=== PATIENT | female | born 1965 | race Caucasian/White ===

== ENCOUNTER → 2023-09-18 12:24 | Outpatient (REF) | payer BC, SELFPAY | LOC: HWWDC 12:24 | PROVIDERS: ATTENDING PHYSICIAN Student in an Organized Health Care Education/Training Program | DX: Z12.31 Encounter for screening mammogram for malignant neoplasm of breast (principal); R05.1 Acute cough | CPT/HCPCS: 71046; 77063; 77067 ==

== ENCOUNTER 2024-08-17 16:26 | Inpatient (IN) | payer BC, SELFPAY ==
[2024-08-17] VITALS (9 sets, daily range): BP systolic 94–126; BP diastolic 53–71; BMI 16.5
[2024-08-17 10:59] LABS: COVID-19 Antigen Negative (Negative)
[2024-08-17 11:02] LABS: ALT (SGPT) 24 U/L (0-35); AST (SGOT) 36 U/L (14-36); Alkaline Phosphatase 94 U/L (38-126); Blood Urea Nitrogen 3 mg/dl (7-17); Calcium 8.7 mg/dl (8.4-10.2); Carbon Dioxide 30 mmol/L (22-30); Chloride 93 mmol/L (98-107); Glucose 119 mg/dl (70-99); Potassium 3.8 mmol/L (3.5-5.1); Sodium 126 mmol/L (135-145); Total Bilirubin 0.6 mg/dl (0.2-1.3); Total Protein 5.3 g/dl (6.3-8.2); eGFR > 60.00
[2024-08-17 11:03] LABS: % Basophils 0.8 % (0-2); % Eosinophils 0.4 % (0-6); % Immature Granulocytes 0.9 % (0-0.5); % Monocytes 4.2 % (1.7-9.3); % Neutrophils 90.7 % (42.2-75.2); Absolute Basophils 0.1 10^3/uL (0-0.2); Absolute Eosinophils 0.1 10^3/uL (0-0.7); Absolute Immature Granulocytes 0.2 10^3/uL (0-0.05); Absolute Lymphocytes 0.5 10^3/uL (1.2-3.4); Absolute Monocytes 0.7 10^3/uL (0.1-0.6); Absolute Neutrophils 15.6 10^3/uL (1.4-6.5); Hemoglobin 12.1 g/dL (12.0-16.0); Mean Corp Hgb Conc. 35.6 g/dL (33.0-37.0); Mean Corpuscular Hgb 31.7 pg (27.0-31.0); Mean Platelet Volume 10.7 fL (7.4-10.4); Nucleated Red Blood Cells % 0 %; Platelet Count 303 10^3/uL (130-400); Red Blood Cell Count 3.82 10^6/uL (4.20-5.40); Red Cell Dist. Width 12.5 % (11.5-14.5); White Blood Cell Count 17.2 10^3/uL (4.8-10.8)
--- NOTE | 2024-08-17 11:42 | ED.GENMED ---
History of Present Illness
General
Chief Complaint: Breathing Problem
Source: patient
Exam Limitations: none
Time Seen by Provider: 08/17/24 10:12
Nursing documentation reviewed up to this point in time: agreed with
History of Present Illness
History of Present Illness:
58-year-old female with no significant past medical history states she was in [place] for 3 weeks, on the plane yesterday to come back home she developed a cough. She has since developed a headache, she states her fever was 104 last night, she has
had green mucus sputum and nasal discharge, severe fatigue. Denies nausea or vomiting
Past History
Past History
ED Past Medical History: None
ED Past Surgical History: None
Social History
Tobacco: Former smoker
Alcohol: None
Personal: Single
Employment: Employed
Review of Systems
Review of Systems
Allergies reviewed?: Yes
All Other Systems: ROS reviewed and negative except as documented in HPI and ROS
Constitutional: Reports fever and fatigue
EENT: Denies sore throat
Respiratory: Reports cough and trouble breathing
Cardiac: Denies chest pain
ABD/GI: Denies abdominal pain, nausea, vomiting or diarrhea
: Denies dysuria, incontinence or urgency
Musculoskeletal: Reports no symptoms
Skin: Reports no symptoms
Neurological: Denies dizzy or headache
Phy Exam
Physical Exam
Physical Exam:
GENERAL: No acute distress. A&Ox3.
CONSTITUTIONAL: Afebrile.
EYES: clear, conjunctivae normal
ENMT: moist mucus membranes, Pharynx nl
RESPIRATORY: Regular respirations, mildly labored, lungs sounds diminished, Coarse junky cough. Initial pulse ox on room air was 89 placed on 3L NC, pulse ox up to 98%
CARDIOVASCULAR: Regular rate and rhythm, no murmurs, no rubs.
GI: Soft, nontender, normal BS
MUSCULOSKELETAL: Moves with ease. Well perfused.
SKIN: Warm, dry, pale
PSYCH: Normal mood and affect. Well kept, interactive and appropriate
NEUROLOGIC: Awake, alert and oriented. No focal neurological deficits
Scores
Heart Failure Risk
Heart Failure Risk Score: Not Applicable
Course
Orders/Labs/Results
Orders:
Orders
08/17/24 10:34
COVID-19 Antigen Urgent
Source: Nasal Swab
Complete Blood Count/With Diff Urgent
Comprehensive Metabolic Panel Urgent
D-Dimer Urgent
NT-proBNP Urgent
Comment: ADD ON
Serum Osmolality Urgent
TSH Urgent
Influenza A+B Rapid Molecular Urgent
EJ Source: Nasal Swab
Specimen Description:
08/17/24 11:42
Electrocardiogram (*1) Urgent
Reason for Study: Shortness of Breath
EKG- Treatment ONCE
0.9% Sodium Chloride 1000 ml [Nss] 1,000 ml IV BOLUS
08/17/24 12:04
CT Chest PE Study Urgent
Comment:
Reason For Exam: , hypoxia, elevated dimer
08/17/24 12:35
0.9% Sodium Chloride 250 ml [Nss] 250 ml IV BOLUS
08/17/24 12:42
0.9% Sodium Chloride 500 ml [Nss] 500 ml IV BOLUS
08/17/24 13:33
Add On- LAB Urgent
Tests Added?: TSH
08/17/24 13:34
Add On- LAB Urgent
Tests Added?: Serum osmolality
08/17/24 15:25
Add On- LAB Urgent
Tests Added?: Pro BNP
08/17/24 15:27
Furosemide [Lasix] 40 mg IV NOW STA
08/17/24 16:12
Troponin I Urgent
08/17/24 16:14
Admit/Transfer Patient As Directed
Co-Sign Provider:
Level of Care: Inpatient admission
Assign to:: Telemetry
Physician / Group: becky
Diagnosis: pnuemonia/acute sinusitis
Reason for Telemetry: Arrhythmia
Date to Stop Telemetry: 08/20/24
Time to Stop Telemetry: 11:00
Reason for Hospitalization: pnuemonia/acute sinusitis
Expected length of stay greater than two midnights?: Yes
ELOS- Estimated Length of Stay in days: 2
I certify the patient meets the requirements for IP care: Yes
Code Status As Directed
Resuscitation Status: Full Code
PRN Pain Medication Management As Directed
May give lesser potent ordered pain med per pt: Yes
preference::
Protocol:: Medication orders for pain may be administered in a
manner that supports deferring to patient preference
when the pt is:
- Requesting an ordered lesser potent pain medication.
Least to most potent pain medications are defined
as: acetaminophen < NSAID < tramadol < opioids
(morphine, oxycodone, hydromorphone).
- Requesting a lesser dose of the same medication IF
ORDERED.
- Requesting a less intrusive route of administration
if both routes are prescribed by the provider (PO <
IV).
08/17/24 16:48
Osmolality, Random Urine Urgent
Date Specimen was Collected: 08/17/24
Time Specimen was Collected: 15:11
Urinalysis Reflex To Culture Urgent
Date Specimen was Collected: 08/17/24
Time Specimen was Collected: 15:11
Urine Microscopic Reflex Cult Urgent
Urine Sodium Urgent
Date Specimen was Collected: 08/18/24
Time Specimen was Collected: 07:02
Urine Culture Urgent
EJ Source: U
Specimen Description:
Date Specimen was Collected: 08/17/24
Time Specimen was Collected: 15:11
08/17/24 16:49
Blood Culture Q30M
EJ Source: Blood/Venous
Specimen Description:
Blood Culture Q30M
EJ Source: Blood/Venous
Specimen Description:
08/17/24 18:00
Acetaminophen [Tylenol] 650 mg PO Q4HPRN PRN
CefTRIAXone [Rocephin] 1,000 mg IV Q24H
Doxycycline Hyclate [Vibramycin] 100 mg 0.9% Sodium Chloride 250 ml [Nss] 250 ml IV Q12H
08/17/24 18:00
Activity As Directed
Activity Level: As Tolerated
Vital Signs As Directed
Frequency: Per unit guidelines
DX Deep Vein Thrombosis Video Routine
08/17/24 20:00
Heparin 5,000 units SC Q12
08/18/24 06:49
Complete Blood Count/With Diff IN AM
Comprehensive Metabolic Panel IN AM
08/20/24 11:00
DC Protocol for Telemetry ONCE
Abnormal Lab Results
08/17/24
10:34
WBC 17.2 H 10^3/uL
(4.8-10.8)
RBC 3.82 L 10^6/uL
(4.20-5.40)
Hct 34.0 L %
(37.0-47.0)
MCH 31.7 H pg
(27.0-31.0)
MPV 10.7 H fL
(7.4-10.4)
Abs Immat Gran (auto) 0.2 H 10^3/uL
(0-0.05)
Absolute Neuts (auto) 15.6 H 10^3/uL
(1.4-6.5)
Absolute Lymphs (auto) 0.5 L 10^3/uL
(1.2-3.4)
Absolute Monos (auto) 0.7 H 10^3/uL
(0.1-0.6)
Immature Gran % 0.9 H %
(0-0.5)
Neutrophils % 90.7 H %
(42.2-75.2)
Lymphocytes % 3.0 L %
(20.5-51.1)
D-Dimer 2.76 H ug/mlFEU
(0.00-0.50)
Sodium 126 L mmol/L
(135-145)
Chloride 93 L mmol/L
(98-107)
BUN 3 L mg/dl
(7-17)
Creatinine 0.4 L mg/dL
(0.6-1.0)
Glucose 119 H mg/dl
(70-99)
Serum Osmolality 255 L mOsm/kg
(275-300)
Total Protein 5.3 L g/dl
(6.3-8.2)
Albumin 3.0 L g/dl
(3.5-5.0)
08/17/24 10:34
08/17/24 10:34
Vital Signs
Initial and Last Documented VS:
Initial Vital Signs
Temp Pulse Resp BP Pulse Ox
99.1 F 90 18 126/63 91
08/17/24 09:30 08/17/24 09:30 08/17/24 09:30 08/17/24 09:30 08/17/24 09:30
Last Documented Vital Signs
Temp Pulse Resp BP Pulse Ox
98.1 F 82 14 99/61 92
08/18/24 07:10 08/18/24 12:05 08/18/24 12:05 08/18/24 07:10 08/18/24 12:05
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
Poultry Farm Laborer consulted with physician?: Yes
Name of Physician Consulted: Cony
MDM/Problems Addressed
MDM/Problems Addressed:
58-year-old female with no significant past medical history states she was in [place] for 3 weeks, on the plane yesterday to come back home she developed a cough. She has since developed a headache, she states her fever was 104 last night, she has
had green mucus sputum and nasal discharge, severe fatigue. Denies nausea or vomiting
Temp 99.1 hypoxic 89% room air, placed on 4 L nasal cannula and is up to 98%
11:30 AM:
Monitor showed a run of tachycardia 138 for about a minute then back to NSR 74.
EKG: NSR
WBC 17.2 with a left shift
D-dimer elevated at 2.76
CMP: Sodium 126 chloride 93
COVID-negative
3:[address] report read: IMPRESSION:
1. Negative for pulmonary embolism.
2. Diffuse bilateral interstitial thickening with thickening of the interalveolar septae, mild bronchial wall thickening, Lucia B-lines, additional micronodular opacities with some ground glass attenuation centrilobular nodules. Trace right
pleural effusion. Together these findings are most suggestive of diffuse interstitial edema with some early changes of the alveolar edema. An atypical infectious process would be a differential consideration.
3. Mediastinal and hilar adenopathy with decreased attenuation, likely related to edematous change. There is also abnormally low attenuation within the visible adipose tissue of the mesentery and retroperitoneum suggesting third spacing.
Initially treated for SIRS/sepsis considering pneumonia with leukocytosis, hypoxemia, low-grade fever
But now patient's CAT scan comes back with the above findings, I will give Lasix 40 mg IV and BNP,Troponin are pending
4:00 p.m.
Hospitalist notified of admission
BNP, Troponin pending
*Pulse Oximetry
Patient hypoxic: yes (Pulse ox 90% on room air)
Comment: 89% on arrival
*EKG
EKG Intrepretation Date: 08/17/24
Interpretation: normal
Heart Rate: 73
Rate: normal
Rhythm: sinus
[place]: left axis deviation
Interval: normal interval
QRS Pattern: normal QRS
Ischemia: no ischemia
*Critical Care Note
Total Time (30-74mins, 75-104mins- exclusive of procedures): Not Applicable
ED Attending Note
-
Portions of this chart may have been created with voice recognition software.� Occasional wrong word or��sound alike� substitutions may have occurred due to the inherent limitations of voice recognition software.
Discharge Plan
Departure
Patient Disposition: Admit
Date of Disposition: 08/17/24
Time of Disposition: 15:24
Admit to: Telemetry
Presentation/result/management discussed w/ accepting MD/DO: Hospitalist
Condition: Serious
Discharge Problem:
Acute hypoxemic respiratory failure, CHF (congestive heart failure)
Interventions
Interventions:
*Risk Screen - Suicide Last Done: 08/17/24 09:30
*General Assessment Last Done: 08/17/24 09:30
*Neglect/Abuse Screening Last Done: 08/17/24 09:30
*ED- Fall Risk Assessment Last Done: 08/17/24 10:37
*ED COVID-19 Vaccine History Last Done: 08/17/24 10:37
*Nursing Disposition Last Done: 08/17/24 18:58
ED- Cardiac Assessment Last Done: 08/17/24 10:32
ED- Pulmonary Assessment Last Done: 08/17/24 10:32
Discharge Date and Time
Discharge Date/Time: 08/17/24 18:59
[2024-08-17 11:46] LABS: D-Dimer 2.76 ug/mlFEU (0.00-0.50)
[2024-08-17] MEDS: NSS 1000 IV (12:15)
[2024-08-17] MEDS: NSS 500 IV (12:49)
[2024-08-17 14:23] LABS: Osmolality Serum 255 mOsm/kg (275-300)
[2024-08-17 14:37] LABS: TSH 1.36 uIU/ml (0.47-4.68)
[2024-08-17] MEDS: LASIX 40 MG IV (16:11)
--- NOTE | 2024-08-17 16:17 | HPS.HSE ---
Family Physician
-
Family Physician: Anibal Tomas
Chief Complaint
-
cough, shortness of breath
History of Present Illness
58-year-old female past medical history of chronic sinusitis, low blood pressure presenting with shortness of breath. She was in [place] for 3 weeks on the plane yesterday to come back when she developed a cough with productive sputum and shortness
of breath. She has since developed a headache with fever of 104 last night. She has some sore throat. She has green mucus sputum and nasal discharge and severe fatigue. Denies nausea or vomiting.
Denies any history of heart conditions.
She states her blood pressure is normally in the low 100 to baseline.
She drinks alcohol occasionally. Denies smoking.
Medical History
Past Medical History
Past Medical History: Reports Other (chronic sinusitis, low blood pressure)
Past Surgical History: Reports None
Social History
Tobacco: Non-smoker
Alcohol: None
Drug: None
Family History
Family History: Not pertinent
Allergies / Home Medications
Allergies reflects when Allergies were last updated in [employer].
Home Medications with original date entered in [employer]
Allergy/Medication List:
Allergies
Allergy/AdvReac Type Severity Reaction Status Date / Time
Penicillins Allergy Hives Verified 08/17/24 09:33
Home Medications
albuterol sulfate 90 mcg/actuation aerosol inhaler 2 puff inhalation R Q6HPRN PRN sob 08/17/24
guaifenesin 100 mg/5 mL oral liquid 200 mg PO DAILYPRN PRN cough 08/17/24
methylcellulose (with sugar) oral powder packet 1 ea PO DAILY 08/17/24
therapeutic multivitamin 1 tab PO DAILY 08/17/24
Review of Systems
-
History Source: Patient
A 12 point ROS was completed and negative except as noted: Yes
Constitutional: Reports No Symptoms
EENT: Reports No Symptoms
Respiratory: Reports See HPI
Cardiac: Reports See HPI
Abdomen/GI: Reports No Symptoms
: Reports No Symptoms
Musculoskeletal: Reports No Symptoms
Skin: Reports No Symptoms
Neurological: Reports No Symptoms
Endocrine: Reports No Symptoms
Hematologic/Lymphatic: Reports No Symptoms
Psych: Reports No Symptoms
Physical Exam
Vital Signs
Vital Signs
Temp Pulse Resp BP Pulse Ox
99.1 F 78 21 126/63 99
08/17/24 09:30 08/17/24 11:00 08/17/24 11:00 08/17/24 09:30 08/17/24 11:00
Physical Exam
General: Well Developed, Well Nourished and No Apparent Distress
HEENT: NormoCephalic, Moist mucous membranes and Atraumatic
Respiratory: Clear
Cardiac: S1/S2 and Regular Rhythm; No Murmur or Rub
GI: Soft, Non Tender, Non Distended and Normal Bowel Sounds; No Organomegaly
Rectal: Deferred by Provider
Musculoskeletal: No Clubbing, No Cyanosis and No Edema
Skin: No Rash
Neuro: Nonfocal/grossly intact
Laboratory Results
-
08/17/24 10:34
08/17/24 10:34
Laboratory Results
Total Bilirubin 0.6 mg/dl (0.2-1.3) 08/17/24 10:34
AST 36 U/L (14-36) 08/17/24 10:34
ALT 24 U/L (0-35) 08/17/24 10:34
Alkaline Phosphatase 94 U/L (38-126) 08/17/24 10:34
Data Reviewed
-
Lab Data: Labs Reviewed by me
Old Records: Reviewed
Impression/Plan
-
IMPRESSION:
PLAN:
# Sepsis (leukocytosis, tachypnea) secondary to pneumonia/acute sinusitis although imaging suggesting acute CHF exacerbation
-COVID and flu negative
-D-dimer 2.76
- CT chest shows diffuse bilateral interstitial thickening with thickening of the interlobular septae, mild bronchial wall thickening and curly B-lines, trace right pleural effusion suggestive of diffuse interstitial edema with changes of alveolar
edema versus atypical infectious process, mediastinal and hilar adenopathy decreasing attenuation likely related to edematous change
- Clinical picture not suggestive of congestive heart failure, not volume overloaded on exam
- Cardiac BNP pending
-Patient given IV fluids and then Lasix
-Check blood cultures
- Ceftriaxone/doxycycline
# Hyponatremia could be decreased solute intake vs SIADH
- Check urine sodium, osmolality
- Hold off on further Lasix for now
Chronic sinusitis
Chronic low blood pressure
Full code
DVT prophylaxis heparin
Cardiac diet
[2024-08-17 16:48] LABS: NT-proBNP 1600 pg/ml
[2024-08-17 16:50] LABS: Troponin I < 0.012 ng/ml
[2024-08-17 17:15] LABS: Urine Albumin Negative (Neg - Trace); Urine Bilirubin Negative (Negative); Urine Character Clear (Clear); Urine Color Yellow; Urine Glucose Negative (Negative); Urine Ketone Negative (Negative); Urine Leukocyte 2+ (Negative); Urine Nitrite Negative (Negative); Urine Occult Blood 1+ (Negative); Urine Specific Gravity 1.005 (<1.030); Urine Urobilinogen Negative (Neg - 1+)
[2024-08-17] MEDS: ROCEPHIN 1000 MG IV (17:41)
[2024-08-17 17:42] LABS: Urine Squamous Cell 0-2 /LPF (Few)
[2024-08-17] MEDS: VIBRAMYCIN 260 MG IV (17:42)
[2024-08-17 17:43] LABS: Urine Red Blood Cell 0-2 /HPF (0-2); Urine White Cell 16-20 /HPF (0-5)
[2024-08-17 17:44] LABS: Urine Bacteria Many (Negative)
[2024-08-17] MEDS: STERILE WATER FOR INJECTION IV (18:13)
--- NOTE | 2024-08-17 18:42 | PTCARENOTE ---
pt presented from ED via stretcher. pt is AAO*3, Vss, 2L o2. pt is oriented to the room. call paez within the reach. pain with cough. plan of care ongoing.
[2024-08-17 19:07] LABS: Osmolality Urine 236 mOsm/kg (300-900)
[2024-08-17] MEDS: HEPARIN SC (21:16)
[2024-08-18] MEDS: ROBITUSSIN 200 MG PO ×2 (01:47→04:39)
[2024-08-18] MEDS: VIBRAMYCIN 260 MG IV ×2 (05:08→17:09)
[2024-08-18] MEDS: TESSALON PERLES 200 MG PO ×2 (05:09→23:13)
[2024-08-18 07:10] VITALS: BP 99/61
[2024-08-18 07:21] LABS: % Basophils 0.6 % (0-2); % Eosinophils 0.2 % (0-6); % Immature Granulocytes 0.9 % (0-0.5); % Lymphocytes 5.1 % (20.5-51.1); % Monocytes 5.3 % (1.7-9.3); % Neutrophils 87.9 % (42.2-75.2); Absolute Basophils 0.1 10^3/uL (0-0.2); Absolute Immature Granulocytes 0.1 10^3/uL (0-0.05); Absolute Lymphocytes 0.6 10^3/uL (1.2-3.4); Absolute Monocytes 0.7 10^3/uL (0.1-0.6); Absolute Neutrophils 11.1 10^3/uL (1.4-6.5); Hematocrit 32.1 % (37.0-47.0); Hemoglobin 11.4 g/dL (12.0-16.0); Mean Corp Hgb Conc. 35.5 g/dL (33.0-37.0); Mean Corpuscular Hgb 32.1 pg (27.0-31.0); Mean Corpuscular Volume 90.4 fL (81.0-99.0); Mean Platelet Volume 10.8 fL (7.4-10.4); Nucleated Red Blood Cells % 0 %; Platelet Count 315 10^3/uL (130-400); Red Blood Cell Count 3.55 10^6/uL (4.20-5.40); Red Cell Dist. Width 12.6 % (11.5-14.5); White Blood Cell Count 12.6 10^3/uL (4.8-10.8)
[2024-08-18 07:47] LABS: ALT (SGPT) 24 U/L (0-35); AST (SGOT) 31 U/L (14-36); Albumin 2.7 g/dl (3.5-5.0); Alkaline Phosphatase 102 U/L (38-126); Blood Urea Nitrogen 4 mg/dl (7-17); Calcium 8.3 mg/dl (8.4-10.2); Carbon Dioxide 28 mmol/L (22-30); Chloride 96 mmol/L (98-107); Estimated Creatinine Clearance 64 ml/min; Glucose 119 mg/dl (70-99); Potassium 3.5 mmol/L (3.5-5.1); Sodium 128 mmol/L (135-145); Total Bilirubin 0.5 mg/dl (0.2-1.3); Total Protein 4.9 g/dl (6.3-8.2); eGFR > 60.00
[2024-08-18] MEDS: LASIX 40 MG IV (09:14)
[2024-08-18] MEDS: HEPARIN 5000 UNITS SC ×2 (09:21→21:00)
[2024-08-18 09:25] VITALS: BMI 16.5
[2024-08-18 11:07] LABS: Urine Sodium 73 mmol/L (30-90)
--- NOTE | 2024-08-18 11:19 | W.PN.HOSP.TC ---
Today's Communication/Plan
-
States that she would like to leave today. Recommended that she stays to figure out what exactly is causing the shortness of breath and hypoxemia. Obtaining a 2D echocardiogram. Giving additional dose of IV Lasix though clinically does not appear
volume overloaded however CT chest suggestive of heart failure versus pneumonia. Continue IV antibiotics. Informed her that if she did want to leave it would be AGAINST MEDICAL ADVICE. States that she has meetings to get to tomorrow. Told her to
many unknowns at this time and remains hyponatremic therefore unfortunately unable to discharge her safely along with the hyponatremia.
She is competent enough to understand this. She understands why she cannot be discharged. She understands risk of worsening hypoxemia requiring intubation cardiac arrest. Stated that she would call her insurance company.
Assessment / Plan
Assessment / Plan
NAD
Scleral Anicteric
MMM
No JVD
Diminished breath sounds throughout rhonchorous when coughing
RRR, S1/S2
Soft, NT, ND, BS+
Warm, Dry
AAOx3
Calm
Acute hypoxemic respiratory failure likely secondary to pneumonia however potential for heart failure(unknown EF)/pulmonary hypertension, 83% on room air per nurse on 08/19/2019
Obtain 2D echocardiogram
IV Lasix
Daily weight
Repeat BMP in the AM
Continue Rocephin doxycycline
Wean oxygen as tolerated
Incentive spirometer
Acapella
Albuterol prn
Guaifenesin and benzonatate
Hyponatremia - Euvolemic
-Already improving
-Fluid restrict
-Repeat BMP tomorrow
Chronic sinusitis
-Does not follow with outpatient ENT
Anticipated Discharge: > 48 hours
Subjective/Interval History
-
Date of Service: August 18, 2024
Seen and examined. No new complaints. No acute overnight events.
Sitting in bedside chair not requiring oxygen however does have evidence of shortness of breath some conversational dyspnea
Nursing check pulse ox was 83% therefore started on nasal cannula again.
Was not able to order a bagel
States that she just returned from [facility] asking if she would be discharged today if not discharged today what about tomorrow. Informed her unlikely to happen. She was able to go would be AGAINST MEDICAL ADVICE. She does have capacity. Stated
that she was going to call her insurance company to confirm.
Objective Data
-
Labs:
Laboratory Results
08/18/24
06:49
WBC 12.6 H
Hgb 11.4 L
Hct 32.1 L
Plt Count 315
Sodium 128 L
Potassium 3.5
Chloride 96 L
Carbon Dioxide 28
BUN 4 L
Creatinine 0.4 L
Glucose 119 H
Calcium 8.3 L
Total Bilirubin 0.5
AST 31
ALT 24
Alkaline Phosphatase 102
Vital Signs:
Vital Signs
Temp Pulse Resp BP Pulse Ox
98.1 F 75 16 99/61 94
08/18/24 07:10 08/18/24 07:10 08/18/24 07:10 08/18/24 07:10 08/18/24 07:10
I&O
08/17/24 08/18/24 08/19/24
06:59 06:59 06:59
Intake Total 970 / 970
Balance 970 / 970
[2024-08-18 11:24] VITALS: BMI 16.5
[2024-08-18] MEDS: KCL 40 MEQ PO (11:57)
[2024-08-18] MEDS: ProAIR HFA INHALER 1 PUFF INH (12:00)
[2024-08-18] MEDS: NON-FORMULARY ITEM 1 UNIT PO (12:19)
--- NOTE | 2024-08-18 12:49 | PTCARENOTE ---
Patient with red itchy raised bumps on hands. Hospitalist notified. PO Benadryl x1 ordered. Patient with own supply of dye free Benadryl administered.
[2024-08-18 13:30] VITALS: BP 95/54
--- NOTE | 2024-08-18 13:49 | PTCARENOTE ---
Found patient sitting in chair with no o2. Checked pulse ox on RA and was 84%. Placed back on 2L. Sat 92% on 2L.
[2024-08-18 15:10] VITALS: BP 103/60
--- NOTE | 2024-08-18 15:11 | CM ---
Met with patient to obtain information for assessment. Patient stated that she lives by herself in a single 2 story home with 5 steps to enter. She described herself as independent with all ADLs, personal care, dressing and bathing. 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 She drives and can get to appointments and does all of her own shopping. 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 Patient has no DME. She has never had VN or been to a SNF.
Patient has a prescription plan and goes to [facility] in [place] for all of her medications.
Her PCP is, Anibal Tomas.
Patient does not have o2 and will most likely need it at discharge.
Plan: Case management will continue to follow and assist with discharge planning. Home, most likely o2 needs.
[2024-08-18] MEDS: STERILE WATER FOR INJECTION 10 ML IV (17:09)
[2024-08-18] MEDS: ROCEPHIN 1000 MG IV (17:09)
[2024-08-18] MEDS: DICLOFENAC 1% TOPICAL GEL 100 GRAM TOPICAL (17:10)
[2024-08-18 19:39] VITALS: BP 89/54
[2024-08-18] MEDS: DICLOFENAC 1% TOPICAL GEL 1 GRAM TOPICAL (21:00)
[2024-08-18] MEDS: HYDROCORTISONE 2.5% OINTMENT 1 APPLIC TOPICAL (21:01)
[2024-08-18 23:14] VITALS: BP 94/56
[2024-08-19 03:37] VITALS: BP 110/59
--- NOTE | 2024-08-19 05:03 | DOWNTIME ---
Addendum entered by Yoselyn Manuel RN 08/19/24 14:21:
Correction: Downtime was 08/19/2024 from 0100 to 08/19/2024 at 0415
Original Note:
There was a [employer] Downtime on 08/18/2024 from 0100 to 08/19/2024 at 0415. Downtime documentation of patient's care, including medication administrations, has been reconciled in the electronic record per guidelines. Refer to the
patient's paper chart under the miscellaneous tab to see printed paper medication records and downtime forms.
[2024-08-19] MEDS: VIBRAMYCIN 260 MG IV (05:18)
[2024-08-19] MEDS: ProAIR HFA INHALER 1 PUFF INH (06:28)
[2024-08-19 07:27] LABS: Hematocrit 35.3 % (37.0-47.0); Hemoglobin 12.2 g/dL (12.0-16.0); Mean Corp Hgb Conc. 34.6 g/dL (33.0-37.0); Mean Corpuscular Hgb 31.2 pg (27.0-31.0); Mean Corpuscular Volume 90.3 fL (81.0-99.0); Mean Platelet Volume 10.9 fL (7.4-10.4); Platelet Count 373 10^3/uL (130-400); Red Blood Cell Count 3.91 10^6/uL (4.20-5.40); Red Cell Dist. Width 12.7 % (11.5-14.5); White Blood Cell Count 11.8 10^3/uL (4.8-10.8)
[2024-08-19 07:33] VITALS: BP 109/64
[2024-08-19 07:54] LABS: Blood Urea Nitrogen 8 mg/dl (7-17); Calcium 8.6 mg/dl (8.4-10.2); Carbon Dioxide 26 mmol/L (22-30); Chloride 97 mmol/L (98-107); Estimated Creatinine Clearance 64 ml/min; Glucose 103 mg/dl (70-99); Potassium 4.2 mmol/L (3.5-5.1); Sodium 128 mmol/L (135-145); eGFR > 60.00
[2024-08-19] MEDS: HEPARIN 5000 UNITS SC ×2 (08:33→19:48)
[2024-08-19] MEDS: DICLOFENAC 1% TOPICAL GEL 100 GRAM TOPICAL ×2 (08:35→14:45)
[2024-08-19] MEDS: HYDROCORTISONE 2.5% OINTMENT TOPICAL ×2 (08:38→19:49)
--- NOTE | 2024-08-19 10:47 | PTCARENOTE ---
Received patient this am AAOx3. Pt anxious an tearful. 'Pt stated that she wants to go home'. Pt then asked what time Physician would be seeing her. Dr. Rupinder Garg saw patient. Pt has ADAMS, O2 sat 96% on 2 L O2 via nasal cannula. Pt walked in
hallway with Dr. Garg. O2 sat 89% on RA. Pt has ADAMS. Dr. Garg explained to the patient that oxygen level needs to be 88% or below for qualification to receive O2 at Home. Dr. Garg ordered a home O2 assessment. Dr. Garg explained POC and why
patient needs to be in the hospital. Pt was anxious an tearful. Plan is to get home O2 assessment. Made patient comfortable. Cont to assess patient status.
[2024-08-19 11:41] VITALS: BP 106/62
--- NOTE | 2024-08-19 13:42 | W.PN.HOSP.TC ---
Addendum entered and electronically signed by Kolby Garg MD 08/22/24 15:13:
Mild protein malnutrition.
Sepsis was ruled out
Original Note:
Today's Communication/Plan
-
Assessment / Plan
Assessment / Plan
NAD
Scleral Anicteric
MMM
No JVD
Diminshed with mild wheezing
RRR, S1/S2
Soft, NT, ND, BS+
Warm, Dry
AAOx3
Calm
Acute hypoxemic respiratory failure likely secondary to pneumonia however potential for heart failure(unknown EF)/pulmonary hypertension, 83% on room air per nurse on 08/19/2019
-?bronchitis vs wheezing but no ofral dx of copd/asthma
--will need outpt pulm follow up for pft's
2D echocardiogram no wma, 65-70%
IV Lasix
Daily weight
Repeat BMP in the AM
Continue Rocephin doxycycline
Wean oxygen as tolerated
Incentive spirometer
Acapella
Albuterol prn
Guaifenesin and benzonatate
Home o2 assessment completed and will need home o2
Hyponatremia - Euvolemic
-Already improving
-Fluid restrict
-Repeat BMP tomorrow
Chronic sinusitis
-Does not follow with outpatient ENT
Anticipated Discharge: Today
Subjective/Interval History
-
Date of Service: August 19, 2024
Seen and examined. No new complaints. No acute overnight events.
Remains on supplemental oxygen. States shortness of breath improving
I personally ambulated her in the foss lowest O2 sat 89% with a heart rate of 100. Did state that she was short of breath visibly. She was short of breath. However states that she still wants to go home
I informed her that she wanted to go home it would be AGAINST MEDICAL ADVICE as I do not believe she is medically cleared for discharge. She states she will even go home with oxygen if she needs to. I informed her I am highly recommending that she
remains inpatient and she received complete treatment for her pneumoniA and allow time for her body to heal and wean off oxygen as tolerated. 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 I bluntly told her
that if she was that she would not be working anymore. She ended up telling me that she would not want to live if she was not working.
And a stroke or cardiac arrest with respiratory distress require CPR and life support or she may if she does not continue on the treatment. She states she will continue treatment at home with oral antibiotics and home O2. She would like to be
discharged. I again told her this would be AMA. She was does not meet therefore I informed her once again today as I did yesterday. She states that IV that he would need to be discharged today cannot stay in the hospital any lonGER. She does not
want to fill AMA paperwork. I informed her this is not a good idea and she should stay in the hospital. I do not believe she is discharge ready at this time but given her persistence and not wanting to sign AMA paperwork I will have to discharge
her. Gave her strict instructions that she she feels worsening in her shortness of breath noted swelling worsening cough fevers chills anything that she should return immediately to the hospital
Objective Data
-
Labs:
Laboratory Results
08/19/24
06:44
WBC 11.8 H
Hgb 12.2
Hct 35.3 L
Plt Count 373
Sodium 128 L
Potassium 4.2
Chloride 97 L
Carbon Dioxide 26
BUN 8
Creatinine 0.4 L
Glucose 103 H
Calcium 8.6
Vital Signs:
Vital Signs
Temp Pulse Resp BP Pulse Ox
97.7 F 75 14 106/62 95
08/19/24 11:41 08/19/24 11:41 08/19/24 11:41 08/19/24 11:41 08/19/24 11:41
I&O
08/18/24 08/19/24 08/20/24
06:59 06:59 06:59
Intake Total 970 / 970 250 / 250 720 / 720
Output Total 1300 / 1300
Balance 970 / 970 -1050 / -1050 720 / 720
[2024-08-19] MEDS: LASIX 40 MG IV (14:46)
[2024-08-19 15:07] VITALS: BP 115/52
--- NOTE | 2024-08-19 16:17 | PTCARENOTE ---
Pt requires Home O2. Pt stated 'that she spoke to her nephew and he advised her to stay in the hospital until clears her for discharge'. Pt said she will stay. Dr. Rupinder Garg made aware. Pt medicated with Lasix 40 mg IV at 1450. Urine specimens
sent. Pulmonary Consult ordered by medicine. Made patient comfortable. Cont to assess patient status.
--- NOTE | 2024-08-19 16:23 | CON.PUL ---
Consultation
Consultation Request
Date/Time Consultation Requested: 08/19/2024
Date/Time Consultation Performed: 08/19/2024
Requesting Provider: Kolby Garg
Performing Provider: Eladia Castelan
Reason for Consultation: Cough, dyspnea
Medical History
-
Chief Complaint: Cough, shortness of breath
History of Present Illness:
Patient is a very pleasant 58-year-old female with no significant past medical history except for recurrent sinusitis and occasional low blood pressure who presented to the hospital with worsening shortness of breath, cough and fever. Patient
recently traveled to [place] in [facility] and on the last day of her travel she started developing some runny nose followed by sore throat. Her symptoms worsened and she developed some cough with greenish expectoration. She also reported fever, sense
of chest tightness, and wheezing at home. In view of her worsening symptoms she presented to the hospital and was noted to have bilateral infiltrates and was admitted to the hospital for additional management. Pulmonary consultation was requested
for further input.
Patient does not recall any sick contacts.
Medical History
Past Medical History
Past Medical History: Reports Other (chronic sinusitis, low blood pressure)
Past Surgical History: Reports None
Social History
Tobacco: Non-smoker
Alcohol: None
Drug: None. No pets at home, no occupational exposure reported.
Family History
Family History: Not pertinent
Allergies / Home Medications
-: Seasonal allergies with hives, itchy eyes and runny nose when pollen season.
Allergies / Home Medications
Allergies
Allergy/AdvReac Type Severity Reaction Status Date / Time
Penicillins Allergy Hives Verified 08/17/24 09:33
Home Medications
�Medication �Instructions �Recorded �Confirmed �Last Taken �Type
albuterol sulfate 90 mcg/actuation 2 puff inhalation R Q6HPRN PRN sob 08/17/24 08/17/24 Unknown History
aerosol inhaler
guaifenesin 100 mg/5 mL oral liquid 200 mg PO DAILYPRN PRN cough 08/17/24 08/17/24 08/16/24 History
methylcellulose (with sugar) oral 1 ea PO DAILY Gastrointestinal 08/17/24 08/17/24 Unknown History
powder packet Issue
therapeutic multivitamin 1 tab PO DAILY Supplement 08/17/24 08/17/24 Unknown History
Review of Systems
-
Hematologic/Lymphatic: Other (All 14 systems reviewed and negative except as stated above in the history of present illness.)
Vitals / Labs / Diagnostic Testing
Vital Signs
Temp Pulse Resp BP Pulse Ox
97.4 F 79 16 115/52 98
08/19/24 15:07 08/19/24 15:07 08/19/24 15:07 08/19/24 15:07 08/19/24 15:07
Lab Data
08/19/24 06:44
08/19/24 06:44
Microbiology
08/17/24 16:48 Urine Urine Culture - Final
Escherichia coli
08/17/24 16:49 Blood/Venous Blood Culture - Preliminary
No Growth in 24 hours- Final report to follow
08/17/24 16:49 Blood/Venous Blood Culture - Preliminary
No Growth in 24 hours- Final report to follow
08/17/24 10:34 Nasal Swab Influenza Types A & B (LUCAS) - Final
Negative for Influenza A & B, NAAT
Negative results must be combined with clinical observations
and patient history.
Nucleic Acid Amplification test (NAAT)performed on the
[employer] platform.
Diagnostic Testing:
Physical Exam
-
HEENT: Normocephalic
Cardiovascular: S1/S2
Respiratory: Wheeze (Bilateral end expiratory faint wheezing.)
GI: Soft
Neurology: Awake and Alert
Skin: Warm
General: Comfortable
Assessment
-
#1. Acute hypoxic respiratory failure.
- Suspect it is related to underlying bilateral pulmonary infiltrates, concerning for atypical pneumonia vs pulmonary edema
- O2 support as needed, wean as tolerated
#2. Bilateral pulmonary infiltrates, multifocal pneumonia with sepsis on admission
- Considering rapid onset symptoms, elevated WBC, fever, purulent expectoration, pneumonia is more likely rather than volume overload
- Check Sputum culture, Legionella and Pneumococcal Ag. Influenza A, B and COVID-19 screen negative. Blood cultures negative.
- Continue Rocephin and doxycycline. WBC count improving, afebrile now, expectoration seems to be decreasing.
- Patient will need outpatient follow-up to ensure resolution of pulmonary infiltrates and additional workup including pulmonary function testing and diffusion capacity assessment.
#3. Hyperactive airway disease, asthmatic bronchitis.
- No prior history of asthma however patient reports wheezing at home and during my exam she appears bronchospastic with faint end expiratory wheezing bilaterally
- Suspect hyperactive airway disease due to acute infection, start DuoNeb scheduled nebulized 4 times daily.
- If bronchodilators alone do not resolve symptoms, will consider a short course of steroids
Other medical diagnoses:
- UTI. On Rocephin. Pansensitive E. coli on cultures
- Mild hyponatremia
Total time spent on this consultation/encounter __65__ minutes which includes review of history, physical exam, medications, laboratory data, personal review of imaging, extensive review of outpatient records, discussion with care team and
respiratory therapy.
Data
CT Chest 08/2024: 1. Negative for pulmonary embolism.
2. Diffuse bilateral interstitial thickening with thickening of the interalveolar septae, mild bronchial wall thickening, Lucia B-lines, additional micronodular opacities with some groundglass attenuation centrilobular nodules. Trace right
pleural effusion. Together these findings are most suggestive of diffuse interstitial edema with some early changes of the alveolar edema. An atypical infectious process would be a differential consideration.
3. Mediastinal and hilar adenopathy with decreased attenuation, likely related to edematous change. There is also abnormally low attenuation within the visible adipose tissue of the mesentery and retroperitoneum suggesting third spacing.
ECHO 08/19/2024: Normal left ventricular chamber size. Normal left ventricular systolic
function. Left ventricular ejection fraction is 65-70%. Normal regional wall
motion. Normal left ventricular wall thickness.
No significant valvular disease.
No prior study available for comparison.
--- NOTE | 2024-08-19 16:36 | CM ---
Spoke with RN who stated that patient would like to leave today however there are still acute medical concerns. RN stated that patient's niece spoke with patient and advised her to follow the attending's advisement. Spoke with patient who stated
that she will listen and not leave AMA. Spoke with Jesika from [facility] [phone] and explained that patient will be leaving soon. Faxed over Demographics, testing, prescription and progress notes to [phone].
Received return call from a woman named Reba who confirmed receipt of fax.
Patient updated that her o2 will be ready and available for her when she is stable for discharge.
Plan: Case management will continue to follow and assist with discharge planning. Home with o2.
[2024-08-19] MEDS: DUONEB INH (17:17)
[2024-08-19] MEDS: ROCEPHIN 1000 MG IV (17:29)
[2024-08-19] MEDS: STERILE WATER FOR INJECTION 10 ML IV (17:29)
[2024-08-19] MEDS: DICLOFENAC 1% TOPICAL GEL TOPICAL ×2 (17:42→23:59)
[2024-08-19 19:34] VITALS: BP 104/61
[2024-08-19] MEDS: VIBRAMYCIN 100 MG PO (19:49)
[2024-08-19] MEDS: DUONEB 3 ML INH (19:57)
[2024-08-19 22:45] VITALS: BP 119/63
[2024-08-20 03:24] VITALS: BP 121/52
[2024-08-20] MEDS: TYLENOL 650 MG PO (04:30)
[2024-08-20 06:00] VITALS: BMI 16.5
[2024-08-20] MEDS: DUONEB 3 ML INH ×3 (07:13→14:36)
[2024-08-20 07:20] VITALS: BP 120/69
[2024-08-20 08:16] LABS: Hematocrit 35.5 % (37.0-47.0); Hemoglobin 12.7 g/dL (12.0-16.0); Mean Corp Hgb Conc. 35.8 g/dL (33.0-37.0); Mean Corpuscular Hgb 31.5 pg (27.0-31.0); Mean Corpuscular Volume 88.1 fL (81.0-99.0); Mean Platelet Volume 10.1 fL (7.4-10.4); Platelet Count 418 10^3/uL (130-400); Red Blood Cell Count 4.03 10^6/uL (4.20-5.40); Red Cell Dist. Width 12.6 % (11.5-14.5); White Blood Cell Count 7.7 10^3/uL (4.8-10.8)
[2024-08-20] MEDS: DICLOFENAC 1% TOPICAL GEL 100 GRAM TOPICAL (09:17)
[2024-08-20] MEDS: HEPARIN 5000 UNITS SC (09:18)
[2024-08-20] MEDS: VIBRAMYCIN 100 MG PO (09:19)
[2024-08-20] MEDS: HYDROCORTISONE 2.5% OINTMENT TOPICAL (09:22)
[2024-08-20 09:50] LABS: Blood Urea Nitrogen 6 mg/dl (7-17); Carbon Dioxide 29 mmol/L (22-30); Chloride 90 mmol/L (98-107); Estimated Creatinine Clearance 64 ml/min; Glucose 107 mg/dl (70-99); Sodium 125 mmol/L (135-145); eGFR > 60.00
[2024-08-20 11:49] VITALS: BP 113/62
--- NOTE | 2024-08-20 11:50 | PN.CDI ---
CDI
- -
CDI:
Physician Documentation Request
Admit Date: 08/17/24 16:26
Dear Doctor,
Please review the following and provide your response in the progress notes.
Clinical Indicators:
Pt admitted with Acute hypoxemic respiratory failure likely secondary to pneumonia
08/18 Registered Dietitian Note: ' Chart reviewed due to pt with BMI < 19 underweight range.
Pt reports was traveling, not eating well and lost 7 lbs over three weeks. Pt observed with protrusion of clavical and temporal wasting.
CBW: 90 lbs 2 oz BMI 16.5 underweight range (08/18). Compared to stated weight of 97 lbs pt with a 7 lb (7%) in 1 month signficant.
With weight loss of > 5% in 1 month and < 75% estimated needs > 5 days pt meets AND/ASPEN criteria for mild protein calorie malnutrition of chronic illness.'
Based on the above information and your assessment, which of the following most accurately represents the patient's nutritional status?
Mild protein malnutrition
Other (please specify)
[place] Criteria (ACP Hospitalist 2017)
2 or more criteria must be present for either
non severe or severe malnutrition
Note that the criteria differs related to the
presence of an acute or chronic illness
Chronic Illness
Energy Intake Non Severe: <75% for >1 month
Severe: <75% for >1 month
Weight Loss Non Severe: 5% over 1 month
7.5% over 3 months
10% over 6 months
20% over 1 year
Severe: >5% over 1 month
>7.5% over 3 months
>10% over 6 months
>20% over 1 year
Body Fat Non Severe: Mild Loss
Severe: Severe Loss
Muscle Mass Non Severe: Mild Loss
Severe: Severe Loss
Additional criteria that can be used to Determine if Mild or Moderate Malnutrition (Merck Manual 2018)
Use of terms such as suspected, likely, concern for, or probable (associated with a specific diagnosis that is being evaluated, monitored, or treated as if it exists) are acceptable and can be coded in the inpatient setting, when documented at the
time of discharge.
Thank you,
Ksenia Pearl RN, BSN
CDI Specialist
[place] [facility]
Please use your independent medical judgment in providing your response.
[2024-08-20] MEDS: ProAIR HFA INHALER 1 PUFF INH (11:53)
--- NOTE | 2024-08-20 12:07 | PN.CDI ---
CDI
- -
CDI:
Physician Documentation Request
Admit Date: 08/17/24 16:26
Dear Doctor,
Please review the following and provide your response in the progress notes.
Clinical Indicators:
The diagnosis of Sepsis was documented on 08/17 (H&P), and 08/19 (Pulmonary), but is not consistently noted in subsequent documentation.
08/17 ER: ' 58-year-old female with no significant past medical history states she was in [place] for 3 weeks, on the plane yesterday to come back home she developed a cough. She has since developed a headache, she states her fever was 104 last
night, she has had green mucus sputum and nasal discharge, severe fatigue.
08/17 H&P: 'Sepsis (leukocytosis, tachypnea) secondary to pneumonia/acute sinusitis'
08/19 Pulmonary: ' Bilateral pulmonary infiltrates, multifocal pneumonia with sepsis on admission
- Considering rapid onset symptoms, elevated WBC, fever, purulent expectoration, pneumonia is more likely rather than volume overload
Respiratory rate: 18-22, WBC's: 17.2, 12.6, 11.8
Please clarify the following:
Sepsis was present on admission and is now resolved.
Sepsis was present on admission and is still being monitored, evaluated or treated
Sepsis was ruled out
Other
Use of terms such as suspected, likely, concern for, or probable (associated with a specific diagnosis that is being evaluated, monitored, or treated as if it exists) are acceptable and can be coded in the inpatient setting, when documented at the
time of discharge.
Thank you,
Ksenia Pearl RN, BSN
CDI Specialist
[place] [facility]
Please use your independent medical judgment in providing your response.
--- NOTE | 2024-08-20 13:08 | W.PN.PUL3 ---
Today's Communication / Plan
-
- Prednisone 40 mg daily for 5 days
- Start Symbicort, 2 puffs twice a day scheduled
- Continue antibiotics, switch to oral to complete a 10-day course of doxycycline and 5 days course of cephalosporin
- Outpatient follow-up with pulmonary clinic in about 2 weeks time
- Assess for need for home oxygen
- Patient can be discharged home from pulmonary standpoint, will sign off, please call as needed
Assessment
-
Patient is a very pleasant 58-year-old female with no significant past medical history except for recurrent sinusitis and occasional low blood pressure who presented to the hospital with worsening shortness of breath, cough and fever. Patient
recently traveled to [place] in [facility] and on the last day of her travel she started developing some runny nose followed by sore throat. Her symptoms worsened and she developed some cough with greenish expectoration. She also reported fever, sense
of chest tightness, and wheezing at home. In view of her worsening symptoms she presented to the hospital and was noted to have bilateral infiltrates and was admitted to the hospital for additional management. Pulmonary consultation was requested
for further input.
Patient does not recall any sick contacts.
#1. Acute hypoxic respiratory failure.
- Suspect it is related to underlying bilateral pulmonary infiltrates, concerning for atypical pneumonia vs pulmonary edema
- O2 support as needed, wean as tolerated
- Assess for need for home oxygen prior to discharge
#2. Bilateral pulmonary infiltrates, multifocal pneumonia with sepsis on admission
- Considering rapid onset symptoms, elevated WBC, fever, purulent expectoration, pneumonia is more likely rather than volume overload
- Check Sputum culture, Legionella and Pneumococcal Ag. Influenza A, B and COVID-19 screen negative. Blood cultures negative.
- Continue Rocephin and doxycycline. WBC count improving, afebrile now, expectoration seems to be decreasing.
- Patient will need outpatient follow-up to ensure resolution of pulmonary infiltrates and additional workup including pulmonary function testing and diffusion capacity assessment.
#3. Hyperactive airway disease, asthmatic bronchitis.
- No prior history of asthma however patient reports wheezing at home and during my exam she appears bronchospastic with faint end expiratory wheezing bilaterally
- Suspect hyperactive airway disease due to acute infection, responded very well to scheduled DuoNeb with improved pulmonary exam as well as symptoms
- Start short course of prednisone, 40 mg daily for 5 days
Other medical diagnoses:
- UTI. On Rocephin. Pansensitive E. coli on cultures
- Mild hyponatremia
Total time spent on this consultation/encounter __45__ minutes which includes review of history, physical exam, medications, laboratory data, personal review of imaging, extensive review of outpatient records, discussion with care team and
respiratory therapy.
Data
CT Chest 08/2024: 1. Negative for pulmonary embolism.
2. Diffuse bilateral interstitial thickening with thickening of the interalveolar septae, mild bronchial wall thickening, Lucia B-lines, additional micronodular opacities with some groundglass attenuation centrilobular nodules. Trace right
pleural effusion. Together these findings are most suggestive of diffuse interstitial edema with some early changes of the alveolar edema. An atypical infectious process would be a differential consideration.
3. Mediastinal and hilar adenopathy with decreased attenuation, likely related to edematous change. There is also abnormally low attenuation within the visible adipose tissue of the mesentery and retroperitoneum suggesting third spacing.
ECHO 08/19/2024: Normal left ventricular chamber size. Normal left ventricular systolic
function. Left ventricular ejection fraction is 65-70%. Normal regional wall
motion. Normal left ventricular wall thickness.
No significant valvular disease.
No prior study available for comparison.
Subjective Data
-
Date of Service:
Date of Service: August 20, 2024
Subjective:
Patient comfortably sitting in bed, in no acute distress, reports overall feeling better.
Review of Systems
Genitourinary: Other (All 14 systems reviewed and negative except as stated above in the history of present illness.)
Objective Data
Data Reviewed
Vital Signs / I&O / Oxygen:
Vital Signs
Temp Pulse Resp BP Pulse Ox
98 F 79 16 113/62 94
08/20/24 11:49 08/20/24 11:49 08/20/24 11:49 08/20/24 11:49 08/20/24 11:49
Intake and Output
08/19/24 08/20/24 08/21/24
06:59 06:59 06:59
Intake Total 250 / 250 1390 / 1390 240 / 240
Output Total 1300 / 1300 1200 / 1200
Balance -1050 / -1050 190 / 190 240 / 240
SaO2 94
Nasal Cannula flow liters per 2
minute
Physical Exam
General: Comfortable
HEENT: Normocephalic
Cardiovascular: S1-S2 and Regular Rhythm
Respiratory: Clear
GI: Soft and Non Distended
Neurology: Awake and Alert
Skin: Warm
Labs/Micro/Reports
Lab Data
08/20/24 07:53
08/20/24 07:53
Microbiology
08/19/24 17:39 Sputum Respiratory Culture - Preliminary
Usual Respiratory Lucy
08/19/24 17:39 Sputum Gram Stain - Preliminary
08/17/24 16:49 Blood/Venous Blood Culture - Preliminary
No Growth in 48 hours- Final report to follow
08/17/24 16:49 Blood/Venous Blood Culture - Preliminary
No Growth in 48 hours- Final report to follow
08/19/24 16:03 Urine Streptococcus pneumoniae Antigen (M - Final
Negative for Streptococcus pneumoniae antigen.
A negative result does not exclude infection with
Streptococcus pneumoniae. Clinical correlation is
recommended.
08/19/24 16:03 Urine Legionella Urinary Antigen - Final
Negative for Legionella pneumophila Serogroup 1 antigen.
A negative result does not rule out the possiblity of
Legionella infection due to other serogroups or species of
Legionella. Clinical correlation is recommended.
08/17/24 16:48 Urine Urine Culture - Final
Escherichia coli
08/17/24 10:34 Nasal Swab Influenza Types A & B (LUCAS) - Final
Negative for Influenza A & B, NAAT
Negative results must be combined with clinical observations
and patient history.
Nucleic Acid Amplification test (NAAT)performed on the
[employer] platform.
[2024-08-20] MEDS: DELTASONE 40 MG PO (13:23)
[2024-08-20] MEDS: DICLOFENAC 1% TOPICAL GEL TOPICAL (13:45)
[2024-08-20 15:37] VITALS: BP 126/69
--- NOTE | 2024-08-20 15:49 | W.DCSUMMARY ---
Discharge Summary
Discharge Data
Date of Admission: 08/17/24
Date of Discharge: 08/20/24
-
Pending Results: No
Hospital Course
Presented with shortness of breath after returning from a 3-week trip and [facility]. Noted productive green sputum and fevers. Started on IV antibiotics in the ER. CT PE study completed that did not demonstrate PE however was suggestive of edema and
potential pneumonia. However was also found to have a low oxygen saturation therefore requiring supplemental oxygen. Cardiac BNP was high at 1600 therefore provided with 2 dose of IV Lasix along with a 2D ultrasound that demonstrated no wall
motion abnormalities with a EF of 65 to 70%. Able to wean o2 back to room air prior to DC.
On day 3 of hospitalization noted to have some wheezing on exam. Former smoker. Was started on Symbicort. Will need outpatient pulmonaru follow up for PFT's
Additionally, urine culture did show E. coli however asymptomatic and this is likely related to asymptomatic bacteriuria. No indication for treatment at this time.
Follow up
PCP
Pulmonary for PFT's
Cardiology
Repeat Chest CT in 6-8weeks to assess resolution of CT findings which are below
CT Chest
IMPRESSION:
1. Negative for pulmonary embolism.
2. Diffuse bilateral interstitial thickening with thickening of the interalveolar septae, mild bronchial wall thickening, Lucia B-lines, additional micronodular opacities with some groundglass attenuation centrilobular nodules. Trace right
pleural effusion. Together these findings are most suggestive of diffuse interstitial edema with some early changes of the alveolar edema. An atypical infectious process would be a differential consideration.
3. Mediastinal and hilar adenopathy with decreased attenuation, likely related to edematous change. There is also abnormally low attenuation within the visible adipose tissue of the mesentery and retroperitoneum suggesting third spacing.
2D echocardiogram
CONCLUSIONS
Normal left ventricular chamber size. Normal left ventricular systolic
function. Left ventricular ejection fraction is 65-70%. Normal regional wall
motion. Normal left ventricular wall thickness.
No significant valvular disease.
No prior study available for comparison.
Was seen on the day of discharge. No new complaints. No acute overnight events.
Eager to go home
Did a walk test with bedside nurse. Remained at 91%. Without dizziness shortness of breath.
NAD
Scleral Anicteric
MMM
No JVD
Improved breath sounds however diminished without wheezing
RRR, S1/S2
Soft, NT, ND, BS+
Warm, Dry
AAOx3
Calm
More than 30 minutes spent in discharge including
Final examination of the patient
Summarizing hospital stay
Instructions for continuing care to all relevant caregivers
Preparation of discharge records, prescriptions, and referral forms
Total time spent (in minutes): 33min
Discharge Plan
-
Patient Disposition: Home with Home Care
Discharge Diagnosis/Procedures: Acute hypoxemic respiratory failure
Pneumonia
Wheezing
Condition: Good
Diet: As tolerated
Activity: As tolerated
Specialty Instructions: Weigh Daily- Call MD for wt gain/loss 3 lbs overnight/5 lbs in 1 week
Activity Restrictions/Additional Instructions:
Presented with shortness of breath after returning from a 3-week trip and [facility]. Noted productive green sputum and fevers. Started on IV antibiotics in the ER. CT PE study completed that did not demonstrate PE however was suggestive of edema and
potential pneumonia. However was also found to have a low oxygen saturation therefore requiring supplemental oxygen. Cardiac BNP was high at 1600 therefore provided with 2 dose of IV Lasix along with a 2D ultrasound that demonstrated no wall
motion abnormalities with a EF of 65 to 70%. Able to wean o2 back to room air prior to DC.
On day 3 of hospitalization noted to have some wheezing on exam. Former smoker. Was started on Symbicort. Will need outpatient pulmonaru follow up for PFT's
Additionally, urine culture did show E. coli however asymptomatic and this is likely related to asymptomatic bacteriuria. No indication for treatment at this time.
Follow up
PCP
Pulmonary for PFT's
Cardiology
Repeat Chest CT in 6-8weeks to assess resolution of CT findings which are below
CT Chest
IMPRESSION:
1. Negative for pulmonary embolism.
2. Diffuse bilateral interstitial thickening with thickening of the interalveolar septae, mild bronchial wall thickening, Lcuia B-lines, additional micronodular opacities with some groundglass attenuation centrilobular nodules. Trace right
pleural effusion. Together these findings are most suggestive of diffuse interstitial edema with some early changes of the alveolar edema. An atypical infectious process would be a differential consideration.
3. Mediastinal and hilar adenopathy with decreased attenuation, likely related to edematous change. There is also abnormally low attenuation within the visible adipose tissue of the mesentery and retroperitoneum suggesting third spacing.
2D echocardiogram
CONCLUSIONS
Normal left ventricular chamber size. Normal left ventricular systolic
function. Left ventricular ejection fraction is 65-70%. Normal regional wall
motion. Normal left ventricular wall thickness.
No significant valvular disease.
No prior study available for comparison.
Instructions: *PCP/Other Church Administrator Heart Failure Instructions
Referrals:
Eladia Castelan MD [Active, Pulmonary Medicine] - in two to three weeks
Anibal Tomas MD [Family Provider, Family Practice]
Prescriptions:
New
doxycycline hyclate 100 mg Capsule
100 mg PO BID Qty: 10 0RF
benzonatate 100 mg Capsule
200 mg PO TIDPRN PRN (Reason: cough) Qty: 15 0RF
cefdinir 300 mg capsule
300 mg PO Q12H Qty: 4 0RF
budesonide-formoterol [Breyna] 80-4.5 mcg/actuation HFA aerosol inhaler
2 puff inhalation BID Qty: 10.2 0RF
prednisone 10 mg tablet
40 mg PO DAILY 5 Days Qty: 20 0RF
Continued
albuterol sulfate 90 mcg/actuation Hfa Aerosol Inhaler
2 puff INHALATION R Q6HPRN PRN (Reason: sob)
therapeutic multivitamin Tablet
1 tab PO DAILY
guaifenesin 100 mg/5 mL Liquid
200 mg PO DAILYPRN PRN (Reason: cough)
methylcellulose (with sugar) Powder In Packet
1 ea PO DAILY
Discharge Orders:
Discharge Patient (As Directed); Ordered 08/20/24
Ordered By: Kolby Garg
Discharge Date and Time
Print Language: NIGERIEN
--- NOTE | 2024-08-21 18:09 | CM ---
Addendum entered by ANIYA Hernandez 08/21/24 18:32:
Messaged attending regarding safety concerns. He acknowledged receipt of text and understood concern.
Original Note:
Spoke with Reba from [facility] who confirmed patient's receipt of o2. Patient discharged last night and was met with [facility] rep who provided her o2 for her. Per day of d/c's notes, patient 91 percent with exertion. Reba from [facility] called and
requested new script from attending for PRN o2 or less liters pending what attending would want. Placed a call to patient at home 08/21 and also spoke with her last day of admission 08/20 in the am. Patient received her o2 however she relayed that she
thought she needed to be on 5 liters of o2. Will message attending to confirm that patient understands how much o2 if any she should be on. Per discussion with Reba, from [facility], staff can sweet pickled fruit maker o2 at any time if not needed.
Messaged attending, relaying conversation with patient and as patient improved greatly from the time that the original script was written, she may be taking too much o2. Relayed conversation to attending that patient did not seem to know that o2 was
no longer indicated as there may be safety concerns with her taking o2 that is not needed.
== END 2024-08-20 19:01 | disposition home or self-care (01) | DRG 193 ==
LOC: 4 EAST ACU 16:26
PROVIDERS: Registered Nurse; ADMITTING PHYSICIAN Hospitalist; ATTENDING PHYSICIAN Hospitalist; CONSULT PHYSICIAN Internal Medicine; EMERGENCY PHYSICIAN Emergency Medicine; FAMILY PHYSICIAN Family Medicine
DX: J18.9 Pneumonia, unspecified organism (principal); J96.01 Acute respiratory failure with hypoxia; E87.1 Hypo-osmolality and hyponatremia; N39.0 Urinary tract infection, site not specified; E44.1 Mild protein-calorie malnutrition; Z68.1 Body mass index [BMI] 19.9 or less, adult; Z87.891 Personal history of nicotine dependence; I95.89 Other hypotension; J32.9 Chronic sinusitis, unspecified; B96.20 Unspecified Escherichia coli [E. coli] as the cause of diseases classified elsewhere; J45.909 Unspecified asthma, uncomplicated; Z79.899 Other long term (current) drug therapy; Z11.52 Encounter for screening for COVID-19
CPT/HCPCS: 71275; 80048; 80053; 81003; 81015; 83880; 83930; 83935; 84300; 84443; 84484; 85025; 85027; 85379; 87040; 87070; 87077; 87086; 87186; 87205; 87449; 87502; 87811; 87899; 93005; 93306; 94640; 96361; 96374; 99285; Q9967

== ENCOUNTER → 2024-09-18 08:49 | Outpatient (REF) | payer BC, SELFPAY | LOC: HWWDC 08:49 | PROVIDERS: ATTENDING PHYSICIAN Physician Assistant Medical | DX: Z12.31 Encounter for screening mammogram for malignant neoplasm of breast (principal) | CPT/HCPCS: 77063; 77067 ==

== ENCOUNTER → 2024-10-16 06:11 | Outpatient (REF) | payer BC, SELFPAY | LOC: HWLAB 06:11 | PROVIDERS: ATTENDING PHYSICIAN Surgery Plastic and Reconstructive Surgery; FAMILY PHYSICIAN Physician Assistant Medical | DX: Z01.818 Encounter for other preprocedural examination (principal) | CPT/HCPCS: 93005 ==

== ENCOUNTER → 2024-11-06 15:50 | Outpatient (REF) | payer BC, SELFPAY | LOC: RAD 15:50 | PROVIDERS: ATTENDING PHYSICIAN Physician Assistant Medical | DX: R18.8 Other ascites (principal); R79.89 Other specified abnormal findings of blood chemistry; R10.84 Generalized abdominal pain | CPT/HCPCS: 74177; Q9967 ==

== ENCOUNTER 2024-12-02 06:11 | Day surgery (SDC) | payer BC, SELFPAY | END 2024-12-02 12:12 | disposition home or self-care (01) | LOC: GI 06:11 | PROVIDERS: ATTENDING PHYSICIAN Surgery | DX: Z12.11 Encounter for screening for malignant neoplasm of colon (principal); D12.3 Benign neoplasm of transverse colon | CPT/HCPCS: 45385; 88305 ==